=== PATIENT | female | born 1995 | race Caucasian/White ===

== ENCOUNTER 2018-08-24 15:08 | Emergency (ER) | payer OTHER ==
[~2018-08-24] VITALS: Wt 86.2 kg
[2018-08-24 15:17] VITALS: RESP 19
[2018-08-24] MEDS ORDERED: KETOROLAC 60 MG INJ IM STA (15:36)
[2018-08-24] MEDS ORDERED: HYDR-4011 PO (15:38)
[2018-08-24] MEDS ORDERED: NAPR-985 PO (15:38)
[2018-08-24] MEDS ORDERED: CYCL10TA7 PO (15:38)
[2018-08-24] MEDS ORDERED: MED4DP PO (15:40)
--- NOTE | 2018-08-24 15:51 | ERD ---
ER Documentation Chief Complaint Chief Complaint bib self, cc: back pain x 2 weeks, 2 years of herniated disc dx HPI 22-year-old female presenting with back pain times 2 years. She was told 2 years ago that she had a herniated disc and over the last 2 weeks her back pain has persisted. She has some sharp stabbing type pain rating down her left leg with no signs of weakness. She has no changes in urination or bowel movement. She has been taking ibuprofen and smoking marijuana with no alleviation of symptoms. She denies any abdominal pain. Denies vomiting. Denies fever. Medical history is ovarian cyst. NKDA. Surgical history of ankle surgery and hip surgery as a child. Social history smokes cigarettes ROS All systems reviewed and are negative except as per history of present illness. Medications Home Meds Active Scripts Methylprednisolone* (Medrol* DOSE PACK) 4 Mg/Dose-Pack Tab.ds.pk, 4 MG PO . DIRECTED, #1 PACKET Prov:JUAN SHAFER PA-C 08/24/18 Naproxen* (Naprosyn*) 500 Mg Tablet, 500 MG PO BID PRN for PAIN AND/OR INFLAMMATION, #30 TAB Prov:JUAN SHAFER PA-C 08/24/18 Hydrocodone/Acetaminophen ([place] 5-325 Tablet) 1 Each Tablet, 1 TAB PO Q6H PRN for PAIN, #7 TAB Prov:JUAN SHAFER PA-C 08/24/18 Cyclobenzaprine Hcl* (Cyclobenzaprine Hcl*) 10 Mg Tablet, 10 MG PO TID, #15 TAB Prov:JUAN SHAFER PA-C 08/24/18 Allergies Allergies: Coded Allergies: No Known Allergy (Unverified , 08/24/18) PMhx/Soc Medical and Surgical Hx: pt denies Medical Hx, pt denies Surgical Hx Hx Alcohol Use: No Hx Substance Use: No Hx Tobacco Use: No Smoking Status: Never smoker FmHx Family History: No diabetes, No coronary disease, No other Physical Exam Vitals Vital Signs Date Temp Pulse Resp B/P (MAP) Pulse Ox O2 O2 Flow FiO2 Time Delivery Rate 08/24/18 98.2 94 19 155/93 100 15:17 (113) Physical Exam GENERAL: The patient is well-appearing, well-nourished, in no acute distress CHEST: Clear to auscultation bilaterally. There are no rales, wheezes or rhonchi. HEART: Regular rate and rhythm. No murmurs, clicks, rubs or gallops. No S3 or S4. ABDOMEN:Soft, nontender and nondistended. Good bowel sounds. No rebound or guarding. No gross peritonitis. No gross organomegaly or masses. No Bentley sign or McBurney point tenderness. BACK: No midline or flank tenderness. To palpation over left paraspinous muscles extending down left buttocks. EXTREMITIES: Equal pulses bilaterally. There is no peripheral clubbing, cyanosis or edema. No focal swelling or erythema. Full range of motion. Grossly neurovascularly intact. NEUROLOGIC: Alert and oriented. Cranial nerves II through XII intact. Motor strength in all 4 extremities with 5 out of 5 strength. Sensation grossly intact. Normal speech and gait. Babinski negative. DTR 2+ throughout. SKIN: There is no apparent rash or petechiae. The skin is warm and dry. Results 24 hrs Laboratory Tests Test 08/24/18 15:44 POC Beta HCG, Qualitative NEGATIVE Current Medications Medications Dose Sig/Diallo Start Time Status Last (Trade) Ordered Route PRN Stop Time Admin Dose Reason Admin 10 mg ONCE ONCE 08/24/18 Dexamethasone IM 16:00 (Decadron) 08/24/18 16:01 Ketorolac 60 mg ONCE STAT 08/24/18 DC Tromethamine IM 15:36 (Toradol) 08/24/18 15:37 Diazepam 5 mg ONCE ONCE 08/24/18 (Valium) PO 16:00 08/24/18 16:01 Procedures/MDM ER course: Valium, Toradol and Decadron given ED. MDM: 22-year-old female presenting with leg pain. I have low suspicion for acute fracture dislocation. I have low suspicion for acute abdominal emergency radiating to the back. Patient likely has herniated disc which is impinging on the nerve and causing pain. Patient is discharged with supportive medications. Patient is told if symptoms change or worsen to return to the ER immediately. All questions answered at discharge Departure Diagnosis: Primary Impression: Back pain Condition: Stable Patient Instructions: Back Pain W/ Sciatica Referrals: [facility] YOU HAVE RECEIVED A MEDICAL SCREENING EXAM AND THE RESULTS INDICATE THAT YOU DO NOT HAVE A CONDITION THAT REQUIRES URGENT TREATMENT IN THE EMERGENCY DEPARTMENT. FURTHER EVALUATION AND TREATMENT OF YOUR CONDITION CAN WAIT UNTIL YOU ARE SEEN IN YOUR DOCTORS OFFICE WITHIN THE NEXT 1-2 DAYS. IT IS YOUR RESPONSIBILITY TO MAKE AN APPOINTMENT FOR FOLOW-UP CARE. IF YOU HAVE A PRIMARY DOCTOR --you should call your primary doctor and schedule an appointment IF YOU DO NOT HAVE A PRIMARY DOCTOR YOU CAN CALL OUR PHYSICIAN REFERRAL HOTLINE AT IF YOU CAN NOT AFFORD TO SEE A PHYSICIAN YOU CAN CHOSE FROM THE FOLLOWING [facility] [address] [facility] [address] [facility] [address] [facility] [address] [facility] [address] [facility] [address] [facility]. [address] Additional Instructions: FOLLOW UP WITH YOUR PRIMARY CARE PHYSICIAN TOMORROW.Return to this facility if you are not improving as expected. JUAN SHAFER PA-C Aug 24, 2018 15:51
[2018-08-24] MEDS ORDERED: DEXAMETHASONE 10 MG/ML 1 ML INJ IM ONE (16:00)
[2018-08-24] MEDS ORDERED: DIAZEPAM 5 MG TAB PO ONE (16:00)
[2018-08-24 16:05] VITALS: BP 143/87; PULSE 76
== END 2018-08-24 16:10 | disposition home or self-care (01) ==
LOC: FTE 15:08
DX: M54.9 Dorsalgia, unspecified (principal)
CPT/HCPCS: 81025; 96372; J1100; J1885; Z7502; Z7610

== ENCOUNTER 2018-12-24 23:30 | Emergency (ER) | payer OTHER ==
[~2018-12-24] VITALS: Ht 162.6 cm; Wt 79.2 kg
[~2018-12-24 23:30] MED LIST: CYCL10TA7 PO; HYDR-4011 PO; MED4DP PO; NAPR-985 PO
[2018-12-24 23:35] VITALS: Ht 162.6 cm; Wt 79.2 kg
[2018-12-25] MEDS ORDERED: ONDANSETRON (ODT) 4 MG TAB ODT STA (00:13)
[2018-12-25] MEDS ORDERED: IBUP-1542 PO (00:48)
[2018-12-25] MEDS ORDERED: DOCU-144 PO (00:48)
[2018-12-25] MEDS ORDERED: CEPH-443 PO (00:49)
--- NOTE | 2018-12-25 00:52 | ERD ---
ER Documentation Chief Complaint Chief Complaint numbness on fingers, bloated, feels exhausted; smoked marijuana @9pm HPI 23-year-old female presents with multiple complaints. She states that she has paresthesias in her bilateral upper extremities. She feels bloated and feels that something is moving in her lower abdomen. She also feels fatigued. Patient is admitted daily marijuana smoker. She last smoked approximately 2 hours prior to arrival. Patient has a history of ovarian cyst. Her follow-up ultrasound confirmed that previous is has resolved 2 weeks ago. She denies urinary complaints, fevers, cough, shortness of breath or chest pain. Patient has an additional complaint that she has intermittent bright red blood per stool with bowel movements occasionally. She did see her primary care doctor for this to did refer her to gastroenterology and her appointment is pending. ROS All systems reviewed and are negative except as per history of present illness. Medications Home Meds Active Scripts Cephalexin* (Keflex*) 500 Mg Capsule, 500 MG PO QID for 5 Days, CAP Prov:TIFFANY NIELSON MD 12/25/18 Docusate Sodium* (Colace*) 100 Mg Capsule, 100 MG PO BID, #30 CAP Prov:TIFFANY NIELSON MD 12/25/18 Ibuprofen* (Motrin*) 600 Mg Tab, 600 MG PO Q6, #15 TAB Prov:TIFFANY NIELSON MD 12/25/18 Methylprednisolone* (Medrol* DOSE PACK) 4 Mg/Dose-Pack Tab.ds.pk, 4 MG PO . DIRECTED, #1 PACKET Prov:JUAN SHAFER PA-C 08/24/18 Naproxen* (Naprosyn*) 500 Mg Tablet, 500 MG PO BID PRN for PAIN AND/OR INFLAMMATION, #30 TAB Prov:JUAN SHAFER PA-C 08/24/18 Hydrocodone/Acetaminophen ([place] 5-325 Tablet) 1 Each Tablet, 1 TAB PO Q6H PRN for PAIN, #7 TAB Prov:JUAN SHAFER PA-C 08/24/18 Cyclobenzaprine Hcl* (Cyclobenzaprine Hcl*) 10 Mg Tablet, 10 MG PO TID, #15 TAB Prov:JUAN SHAFER PA-C 08/24/18 Allergies Allergies: Coded Allergies: No Known Allergy (Unverified , 08/24/18) PMhx/Soc History of Surgery: Yes (cholecystectomy, left hip, right ankle) Hx Alcohol Use: No Hx Substance Use: Yes (marijuana) Hx Tobacco Use: No Smoking Status: Current some day smoker FmHx Family History: No diabetes, No coronary disease, No other Physical Exam Vitals Vital Signs Date Temp Pulse Resp B/P (MAP) Pulse Ox O2 O2 Flow FiO2 Time Delivery Rate 12/24/18 98.8 119 20 146/90 98 23:35 (108) Physical Exam Const: No acute distress. Obese. Head: Atraumatic Eyes: Normal Conjunctiva ENT: Normal External Ears, Nose and Mouth. Neck: Full range of motion. No meningismus. Resp: Clear to auscultation bilaterally Cardio: Regular rate and rhythm, no murmurs Abd: Soft, non tender, non distended. Normal bowel sounds Skin: No petechiae or rashes Back: No midline or flank tenderness Ext: No cyanosis, or edema Neur: Awake and alert Psych: Normal Mood and Affect Results 24 hrs Laboratory Tests Test 12/25/18 00:22 12/25/18 00:23 Bedside Urine pH (LAB) 5.5 Bedside Urine Protein (LAB) 1+ Bedside Urine Glucose (UA) Negative Bedside Urine Ketones (LAB) 2+ Bedside Urine Blood 1+ Bedside Urine Nitrite (LAB) Negative Bedside Urine Leukocyte Esterase (L 2+ POC Beta HCG, Qualitative NEGATIVE Current Medications Medications Dose Sig/Diallo Start Time Status Last (Trade) Ordered Route PRN Stop Time Admin Dose Reason Admin Ondansetron 8 mg ONCE STAT 12/25/18 DC 12/25/18 HCl (Zofran ODT 00:13 00:24 Odt) 12/25/18 00:14 Cephalexin 500 mg ONCE ONCE 12/25/18 (Keflex) PO 01:00 12/25/18 01:01 Procedures/MDM Patient presents with multiple complaints. She has paresthesias of bilateral upper extremities for the last day. She has intermittent lower abdominal symptoms without significant tenderness or pain. She has intermittent bright red blood per rectum and has outpatient follow-up pending. Urine shows leukocyte esterase and hCG is negative. Patient has no significant signs or symptoms to suggest concerning emergent illness. She is well-appearing upon history and exam but apparently had one episode of vomiting and the bathroom by report. Patient is admitted chronic marijuana user which may be contributing to some symptoms. She had a benign reassuring abdomen on serial exam. Patient was given Keflex, Zofran, and will be treated with Colace, ibuprofen, Keflex at home with primary care follow-up and return precautions. The patient was stable with no new complaints during the ER course. Clinically, there is no current evidence to suggest meningitis, sepsis, acute abdomen, pneumonia, stroke, acute coronary syndrome, pulmonary embolism, aortic dissection or any other emergent condition appearing to require further evaluation or hospitalization. Patient counseled regarding my diagnostic impression and care plan. Prior to discharge all questions answered. Pt agrees with treatment plan and understands strict return precautions. Pt is instructed to follow up with primary care provider within 24- 48 hours. Precautionary instructions provided including instructions to return to the ER if not improving or for any worsening or changing symptoms or concerns. Disclaimer: Inadvertent spelling and grammatical errors are likely due to EHR/dictation software use and do not reflect on the overall quality of patient care. Also, please note that the electronic time recorded on this note does not necessarily reflect the actual time of the patient encounter. Departure Diagnosis: Primary Impression: Abdominal pain Abdominal location: unspecified location Qualified Codes: R10.9 - Unspecified abdominal pain Additional Impression: Multiple complaints Condition: Stable Patient Instructions: Abdominal Pain, Unknown Cause, (Female), Paraesthesias Referrals: LEBRON MOON (PCP) Additional Instructions: Urine shows signs of infection and we will treat for this. Recommend follow-up with gastroenterology as scheduled. Recheck for fevers, worsening pain, bleeding, new worsening symptoms. TIFFANY NIELSON MD December 25, 2018 00:52
[2018-12-25] MEDS ORDERED: CEPHALEXIN 500 MG CAP PO ONE (01:00)
[2018-12-25 01:40] VITALS: BP 116/70; PULSE 98; RESP 17
== END 2018-12-25 01:40 | disposition home or self-care (01) ==
LOC: FTE 23:30
DX: R10.9 Unspecified abdominal pain (principal); F17.210 Nicotine dependence, cigarettes, uncomplicated; R19.5 Other fecal abnormalities; R53.83 Other fatigue
CPT/HCPCS: 81003; 81025; Z7502; Z7610; 99283

== ENCOUNTER 2019-04-08 19:31 | Emergency (ER) | payer OTHER ==
[~2019-04-08] VITALS: Ht 157.5 cm; Wt 65.0 kg
[~2019-04-08 19:31] MED LIST changes: +CEPH-443 PO; +DOCU-144 PO; +IBUP-1542 PO
[2019-04-08 19:33] VITALS: Ht 157.5 cm; Wt 65.0 kg
[2019-04-08 22:19] VITALS: BP 122/71; PULSE 98; RESP 18
== END 2019-04-08 22:20 | disposition home or self-care (01) ==
LOC: FTE 19:31
DX: F41.9 Anxiety disorder, unspecified (principal)
CPT/HCPCS: 36415; 81001; 81025; 85025; Z7502; 99283